=== PATIENT | male | born 1980 | race Caucasian/White ===

== ENCOUNTER 2020-03-29 04:16 | Emergency (ER) | payer BC, SELFPAY ==
[2020-03-29 04:18] VITALS: BP 153/90; PULSE 80; RESP 20; TEMP 36.4; O2SAT 100; BMI 38.6
[2020-03-29] MEDS: Ondansetron 4 MG/2 ML Vial IV (04:38)
[2020-03-29] MEDS: Ketorolac 30 MG/ML Syringe IV (04:39)
[2020-03-29] MEDS: 0.9% Normal Saline 1,000 ML 999 ML IV (04:43)
--- NOTE | 2020-03-29 04:45 | CT_ITS ---
STUDY: CT ABDOMEN AND PELVIS WITHOUT CONTRAST REASON FOR EXAM: Male, 39 years old patient with right-sided flank pain radiating to right lower abdomen. Past medical history of kidney stones RADIATION DOSAGE (If Supplied By Facility): CTDIvol = ( 22.92 ) mGy, DLP = ( 1420.05 ) mGycm TECHNIQUE: Transaxial images were obtained from the dome of the diaphragm to the symphysis pubis without oral contrast, and without intravenous contrast. Sagittal and coronal images were reconstructed. Individualized dose optimization techniques were used for this CT. COMPARISON: CT of abdomen and pelvis dated 04/12/2017. FINDINGS: The visualized lung bases are unremarkable. The visualized portions of the heart are within normal limits. There is decreased attenuation of the liver consistent with steatosis. Normal gallbladder and extrahepatic biliary system. Normal spleen. Normal pancreas. Normal bilateral adrenal glands. There is moderate right-sided hydronephrosis and hydroureter secondary to a proximal ureteral calculus measuring 5 mm in greatest dimension. There are nonobstructing right-sided renal calculi with the largest measuring 5.3 mm in size. Normal left kidney. Normal visualized stomach. There is no evidence for dilated bowel, ascites or pneumoperitoneum. The small bowel has a grossly normal appearance. Normal colon. The appendix is visualized and appears normal. Normal abdominal aorta. Normal inferior vena cava. Normal retroperitoneum. Normal urinary bladder. Normal visualized prostate gland. Normal abdominal wall. Normal osseous structures. CT/Abdomen/Pelvis without Cont IMPRESSION: Moderate right-sided hydronephrosis and hydroureter secondary to a proximal ureteral calculus. Electronically Signed: Kendra Bunn MD at 5:18 EST , Service support ,
--- NOTE | 2020-03-29 04:46 | ED.DCSUM_ITS ---
History of Present Illness Chief Complaint: Flank Pain Narrative: Patient is a 39-year-old male who presents with abdominal pain. He woke about an hour ago from sleep with sudden onset severe cramping right lower quadrant abdominal pain. He does have some pain on the right flank as well. No back pain. He has a history of prior kidney stones but this does not feel the same. He felt like he needed to have bowel movement but did not. No urinary symptoms such as dysuria frequency or urgency. No diarrhea. He does report nausea with vomiting on arrival here to the emergency department. No fevers. No history of any abdominal surgeries. Before the sudden onset of his pain he has otherwise recently been well. Past Medical History - Allergies and Home Meds Allergies/Adverse Reactions: Allergies No Known Allergies Allergy (Verified 03/29/20 04:35) Primary Care Physician: Don Garza MD [Primary Care Provider] - Past Medical History: - - Prior urolithiasis Surgical History: - - No abdominal surgeries Smoking Status: Never smoker Review of Systems All systems negative except as indicated General: Denies: Fever Eyes: Denies: Visual changes - bilaterally Cardiovascular: Denies: Chest pain Respiratory: Denies: Dyspnea Gastrointestinal: Reports: Abdominal pain, Nausea, Vomiting. Denies: Diarrhea, Constipation Genitourinary: Denies: Dysuria, Hematuria, Frequency Musculoskeletal: Denies: Myalgias, Arthralgias Skin: Denies: Rash Neurological: Denies: Headache Physical Exam Vital Signs/Narrative: Vital Signs Temp Pulse Resp BP Pulse Ox 03/29/20 04:18 97.6 F L 80 20 H 153/90 H 100 Inital Vital Signs reviewed: Yes General: Acute Distress Head: Normocephalic Eyes: EOMI ENT: Moist mucous membranes Neck: Supple Cardiovascular: Regular rate, Regular rhythm Respiratory: No distress, CTA bilaterally Abdomen: Soft, Tender - Right lower quadrant abdominal tenderness. Negative for: Guarding, Rebound tenderness Skin: Normal color Neurological: Alert Psychological: Normal affect Diagnostic/Tx/Re-eval Impressions Abdomen/Pelvis CT 03/29/20 04:45 IMPRESSION: Moderate right-sided hydronephrosis and hydroureter secondary to a proximal ureteral calculus. Electronically Signed: Kendra Bunn MD at 5:18 EST , Service support , 03/29/20 04:45 Abdomen/Pelvis without Cont [CT] Stat Laboratory Results 03/29/20 03/29/20 03/29/20 04:30 04:30 05:10 WBC 8.3 RBC 5.71 Hgb 17.5 H Hct 49.2 MCV 86.2 MCH 30.6 MCHC 35.6 RDW Std Deviation 39.1 RDW Coeff of Radha 12.6 Plt Count 289 MPV 9.0 Immature Gran % (Auto) 0.100 Neut % (Auto) 27.6 L Lymph % (Auto) 58.7 H [place] % (Auto) 9.3 Eos % (Auto) 3.6 Baso % (Auto) 0.7 Absolute Neuts (auto) 2.3 Absolute Lymphs (auto) 4.87 H Nucleated RBC % 0 Sodium 138 Potassium 3.9 Chloride 104 Carbon Dioxide 24.0 Anion Gap 10 BUN 16 Creatinine 1.11 Estim Creat Clear Calc 100.97 Est GFR (MDRD) Af Amer 94 Est GFR (MDRD) Non-Af 78 BUN/Creatinine Ratio 14.4 Glucose 132 H Calcium 8.9 Total Bilirubin 1.20 H AST 48 H ALT 107 H Alkaline Phosphatase 59 Total Protein 7.4 Albumin 4.4 Globulin 3.0 Albumin/Globulin Ratio 1.5 Lipase 67 L Urine Color Gina Urine Clarity Cloudy Urine pH 5.0 Ur Specific [place] 1.025 Urine Protein 30 H Urine Glucose (UA) Normal Urine Ketones 50 H Urine Occult Blood 250 H Urine Nitrite Negative Urine Bilirubin Negative Urine Urobilinogen 1 H Ur Leukocyte Esterase 25 H Urine RBC > 100 SEEN Urine WBC 0-5 SEEN Ur Squamous Epith Cells 0 SEEN Ur Transition Epith Cell 0-5 SEEN Urine Bacteria 3+ Urine Mucus 1+ - Medical Decision Making Patient was given IV fluids, Toradol, Zofran. He had about a 50% improvement in his pain from 8 out of 10 down to 4 out of 10. He is resting more comfortably. CBC and BMP unremarkable as above. CT of the abdomen and pelvis does show a proximal right ureteral calculus with moderate hydroureter and hydronephrosis. Given the patient's symptoms are improved I feel expectant management is appropriate. Patient was given oxycodone and will be discharged with a prescription for oxycodone and Flomax. He was referred to urology for follow- up. He understands to return for new or worsening symptoms. ED Disposition - Plan for ED Patient: Disposition: Home or Assisted Living Diagnosis: Ureterolithiasis Instructions: ED Kidney Stone w/ Colic Prescriptions: Tamsulosin HCl [Flomax] 0.4 mg PO DAILY #7 cap Prescription Printed Oxycodone HCl/Acetaminophen [Percocet 5/325] 1 tab PO Q6H PRN PRN 3 Days #12 tab PRN Reason: Pain Prescription Printed Referrals: Don Garza MD [Primary Care Provider] - Sebas Cabrera MD [STAFF PHYSICIAN] -
[2020-03-29 04:57] LABS: Absolute Lymphocyte Count 4.87 X10^3/uL (0.83-4.51); Absolute Neutrophil Count 2.3 X10^3/uL (2.0-7.7); Basophil# 0.06 X10^3/uL; Basophil% 0.7 % (0-1); Eosinophils% 3.6 % (0-5); Hematocrit 49.2 % (40-54); Hemoglobin 17.5 g/dL (13.0-16.5); Lymphocyte # 4.87 X10^3/ul (4.0); Lymphocyte % 58.7 % (19-41); Mean Corp Hgb Conc 35.6 g/dL (32-36); Mean Corpuscular Hgb 30.6 pg (27.0-32.0); Mean Corpuscular Volume 86.2 fL (80-94); Monocyte# 0.77 X10^3/uL; Monocyte% 9.3 % (0-10); NRBC Flagged by Analyzer 0 % (0-5); Neutrophil # 2.28 X10^3/uL (2.7-7.7); Neutrophil % 27.6 % (47-70); Platelet Count 289 K/mm3 (150-450); RBC Distribution Width CV 12.6 % (11.6-14.6); RBC Distribution Width SD 39.1 fl (35.1-43.9); Red Blood Count 5.71 M/mm3 (4.6-6.2); White Blood Count 8.3 K/mm3 (4.4-11.0)
[2020-03-29 05:08] LABS: ALB/GLOB Ratio 1.5 RATIO (0.9-2.4); AST(SGOT) 48 U/L (15-37); Alanine Aminotransfer ALT/SGPT 107 U/L (16-61); Albumin, Serum 4.4 g/dL (3.2-5.0); Alkaline Phosphatase 59 U/L (45-117); Anion Gap 10 (5-15); BUN 16 mg/dL (7-18); BUN/Creat Ratio 14.4 RATIO (10-20); Calcium,Total 8.9 mg/dL (8.5-10.1); Chloride 104 mmol/L (98-107); Creatinine, Serum 1.11 mg/dL (0.70-1.30); EST Glomerular Filtration Rate 78 mL/min (>60); Est Glom Filt Rate - Afr Amer 94 mL/min (>60); Estimated Creatinine Clearance 100.97 ml/min; Glucose 132 mg/dL (74-106); Lipase 67 U/L (73-393); Potassium 3.9 mmol/L (3.5-5.1); Protein, Total 7.4 g/dL (6.4-8.2); Sodium Level 138 mmol/L (136-145)
[2020-03-29 05:16] LABS: Squamous Epithelial Cells - UA 0 SEEN /hpf (0-5)
[2020-03-29 05:17] LABS: Color, Urine Amber (Yellow); Glucose, Dipstick Normal (Normal); Ketone-Dipstick 50 mg/dl (Negative); Leukocyte Esterase-Dipstick 25 /ul (Negative); Nitrite-Dipstick Negative (Negative); Occult Blood-Urine 250 /ul (Negative); Protein-Dipstick 30 mg/dl (Negative); Specific Gravity, Urine 1.025 (1.002-1.030); Urine Bilirubin Dipstick Negative (Negative); Urine Clarity Cloudy (Clear); Urine Urobilinogen 1 mg/dl (Normal)
[2020-03-29 05:23] LABS: Red Blood Cells-Urine > 100 SEEN /hpf (0-5)
[2020-03-29 05:24] LABS: Bacteria 3+ /hpf (None Seen); White Blood Cells 0-5 SEEN /hpf (0-5)
[2020-03-29 05:25] LABS: Mucous, Urine 1+ /hpf (<or=2+)
[2020-03-29 05:26] LABS: Transitional Epithelial - Ur 0-5 SEEN /hpf (0-5)
[2020-03-29] MEDS: oxyCODONE 5 MG Tablet PO (05:30)
[2020-03-29 06:00] VITALS: BP 148/72; PULSE 78; RESP 16; O2SAT 97
== END 2020-03-29 06:01 | disposition home or self-care (01) ==
PROVIDERS: Emergency Provider Emergency Medicine; PCP Family Medicine
DX: N13.2 Hydronephrosis with renal and ureteral calculous obstruction (principal); Z87.442 Personal history of urinary calculi
CPT/HCPCS: 74176; 80053; 81001; 83690; 85025; 96361; 96374; 96375; 99283; J7030; J2405

== ENCOUNTER → 2020-04-19 08:54 | Outpatient (CLI) | payer BC, SELFPAY ==
[2020-03-29 04:18] VITALS: BMI 38.6
--- NOTE | 2020-04-19 08:58 | RAD_ITS ---
STUDY: X-RAY - ABDOMEN/PELVIS REASON FOR EXAM: Male, 39 years old. Right sided ureteral stone. Pain. TECHNIQUE: Two AP supine views of the abdomen and pelvis. COMPARISON: CT of the abdomen and pelvis, 03/29/2020. FINDINGS: Normal visualized lung bases. There is an unremarkable bowel gas pattern. There is no demonstrated free abdominal air. The visualized liver, spleen and kidneys are grossly normal in size and morphology. There are small densities overlying the right kidney thought to be the renal calculi seen CT. The right proximal ureteral calculus seen on CT is not appreciated. There are no other suspicious calcification Normal soft tissue structures. Normal visualized osseous structures. RAD/Abdomen Single View IMPRESSION: 1. Nonvisualization of the right ureteral calculus. 2. Stable right renal calculi. Electronically Signed: Raymundo Crespo DO at 17:29 EST Tel [phone], Service support ,
== END ==
PROVIDERS: PCP Nurse Practitioner Family; Referring Provider Urology; Visit Provider Urology
DX: N20.1 Calculus of ureter (principal)
CPT/HCPCS: 74018

== ENCOUNTER 2020-04-20 11:27 | Day surgery (SDC) | payer BC, SELFPAY ==
--- NOTE | 2020-04-20 11:35 | RAD_ITS ---
STUDY: X-RAY - ABDOMEN/PELVIS REASON FOR EXAM: Male, 40 years old. PRE OP RIGHT SIDE KIDNEY STONE TECHNIQUE: Single AP view of the abdomen / pelvis. COMPARISON: Comparison is made with prior study of 04/19/2020. FINDINGS: There is an unremarkable bowel gas pattern. 2.4 mm calculus in the midpole of the right kidney. Normal soft tissue structures. Normal visualized osseous structures. RAD/Abdomen Single View IMPRESSION: 2.4 mm calculus in the midpole of the right kidney. Electronically Signed: Lorne Davila, at 12:02 EST , Service support ,
[2020-04-20 11:59] VITALS: BP 143/85; PULSE 60; RESP 16; TEMP 36.6; O2SAT 97; BMI 38.2
[2020-04-20] MEDS: Lactated Ringers 1,000 ML 100 ML IV (12:16)
== END 2020-04-20 13:10 | disposition home or self-care (01) ==
LOC: SDC 11:28 → AC 11:29
PROVIDERS: PCP Nurse Practitioner Family; Visit Provider Urology
DX: N20.0 Calculus of kidney (principal); Z20.822 Contact with and (suspected) exposure to COVID-19
CPT/HCPCS: 74018; 87426; J7120

== ENCOUNTER → 2023-03-12 | Outpatient (CLI) | payer BC, SELFPAY ==
[2023-03-12 12:11] LABS: Absolute Lymphocyte Count 2.27 X10^3/uL (0.83-4.51); Absolute Neutrophil Count 2.7 X10^3/uL (2.0-7.7); Basophil# 0.05 X10^3/uL; Basophil% 0.8 % (0-1); Eosinophil# 0.27 X10^3/uL; Eosinophils% 4.6 % (0-5); Hematocrit 51.8 % (40-54); Hemoglobin 17.6 g/dL (13.0-16.5); Lymphocyte # 2.27 X10^3/ul (0.83-4.51); Lymphocyte % 38.5 % (19-41); Mean Corpuscular Hgb 30.3 pg (27.0-32.0); Mean Corpuscular Volume 89.3 fL (80-94); Mean Platelet Vol. 9.7 fl (6.2-12.0); Monocyte# 0.61 X10^3/uL; Monocyte% 10.4 % (0-10); NRBC Flagged by Analyzer 0 % (0-5); Neutrophil # 2.68 X10^3/uL (2.7-7.7); Neutrophil % 45.5 % (47-70); Platelet Count 271 K/mm3 (150-450); RBC Distribution Width CV 13.2 % (11.6-14.6); White Blood Count 5.9 K/mm3 (4.4-11.0)
[2023-03-12 12:24] LABS: ALB/GLOB Ratio 1.2 RATIO (0.9-2.4); AST(SGOT) 36 U/L (15-37); Alanine Aminotransfer ALT/SGPT 83 U/L (16-61); Albumin, Serum 4.1 g/dL (3.2-5.0); Alkaline Phosphatase 60 U/L (45-117); Anion Gap 7 (5-15); BUN 18 mg/dL (7-18); BUN/Creat Ratio 20.3 RATIO (10-20); Calcium,Total 9.3 mg/dL (8.5-10.1); Chloride 105 mmol/L (98-107); Cholesterol 157 mg/dL (200); Creatinine, Serum 0.89 mg/dL (0.70-1.30); EST Glomerular Filtration Rate 100 mL/min (>60); Est Glom Filt Rate - Afr Amer 121 mL/min (>60); Globulin 3.5 g/dL (2.2-4.2); Glucose 131 mg/dL (74-106); High Density Lipoprotein 42 mg/dL; Potassium 4.7 mmol/L (3.5-5.1); Protein, Total 7.6 g/dL (6.4-8.2); Sodium Level 142 mmol/L (136-145); Triglycerides 76 mg/dL; Very Low Density Lipoprotein 15 mg/dL (5-40)
[2023-03-13 10:36] LABS: Hemoglobin A1c 5.1 % (3.8-5.6)
== END | disposition home or self-care (01) ==
PROVIDERS: PCP Nurse Practitioner Family; Visit Provider Nurse Practitioner Family
DX: Z00.01 Encounter for general adult medical examination with abnormal findings (principal); R73.01 Impaired fasting glucose
CPT/HCPCS: 36415; 80053; 80061; 83036; 85025

== ENCOUNTER → 2023-10-02 | Outpatient (CLI) | payer BC, SELFPAY ==
[2023-10-02 10:16] LABS: Absolute Lymphocyte Count 2.81 X10^3/uL (0.83-4.51); Absolute Neutrophil Count 2.8 X10^3/uL (2.0-7.7); Basophil# 0.06 X10^3/uL; Basophil% 0.9 % (0-1); Eosinophil# 0.19 X10^3/uL; Eosinophils% 2.9 % (0-5); Hematocrit 52.3 % (40-54); Hemoglobin 18.2 g/dL (13.0-16.5); Lymphocyte # 2.81 X10^3/ul (0.83-4.51); Lymphocyte % 43.6 % (19-41); Mean Corp Hgb Conc 34.8 g/dL (32-36); Mean Corpuscular Hgb 29.8 pg (27.0-32.0); Mean Corpuscular Volume 85.7 fL (80-94); Monocyte# 0.56 X10^3/uL; Monocyte% 8.7 % (0-10); NRBC Flagged by Analyzer 0 % (0-5); Neutrophil # 2.81 X10^3/uL (2.7-7.7); Neutrophil % 43.6 % (47-70); Platelet Count 235 K/mm3 (150-450); RBC Distribution Width CV 12.9 % (11.6-14.6); RBC Distribution Width SD 39.7 fl (35.1-43.9); White Blood Count 6.5 K/mm3 (4.4-11.0)
[2023-10-02 10:37] LABS: Vitamin B12 783 pg/mL (211-911); Vitamin D,25 Hydroxy 37.2 ng/mL
[2023-10-02 11:00] LABS: Internal QC Validated? YES +Cl - CLEAR BKGD; Monotest Negative (Negative); Record Kit Lot#, Mono 13241033
[2023-10-02 11:15] LABS: ALB/GLOB Ratio 1.3 RATIO (0.9-2.4); AST(SGOT) 39 U/L (15-37); Alanine Aminotransfer ALT/SGPT 69 U/L (16-61); Albumin, Serum 4.2 g/dL (3.2-5.0); Alkaline Phosphatase 60 U/L (45-117); Anion Gap 8 (5-15); BUN 15 mg/dL (7-18); BUN/Creat Ratio 18.3 RATIO (10-20); Calcium,Total 9.2 mg/dL (8.5-10.1); Chloride 103 mmol/L (98-107); Creatinine, Serum 0.82 mg/dL (0.70-1.30); EST Glomerular Filtration Rate 109 mL/min (>60); Est Glom Filt Rate - Afr Amer 131 mL/min (>60); Ferritin 183 ng/mL (26-388); Globulin 3.3 g/dL (2.2-4.2); Glucose 105 mg/dL (74-106); Iron 126 ug/dL (65-175); Protein, Total 7.5 g/dL (6.4-8.2); Sodium Level 135 mmol/L (136-145); T4 Free Direct 0.92 ng/dL (0.76-1.46); Thyroid Stim Hormone (TSH) 1.43 uIU/mL (0.358-3.74)
[2023-10-05 13:36] LABS: Pathologist Review Reviewed
== END | disposition home or self-care (01) ==
LOC: MTLAB 09:36
PROVIDERS: PCP Nurse Practitioner Family; Referring Provider Nurse Practitioner Family; Visit Provider Nurse Practitioner Family
DX: R53.83 Other fatigue (principal)
CPT/HCPCS: 36415; 80053; 82306; 82607; 82728; 83540; 84439; 84443; 85025; 86308

== ENCOUNTER → 2023-11-24 | Outpatient (CLI) | payer BC, SELFPAY | END | disposition home or self-care (01) | LOC: SL 08:04 | PROVIDERS: PCP Nurse Practitioner Family; Referring Provider Nurse Practitioner Family; Visit Provider Nurse Practitioner Family | DX: G47.33 Obstructive sleep apnea (adult) (pediatric) (principal) | CPT/HCPCS: 95806 ==

== ENCOUNTER → 2024-02-04 | Outpatient (CLI) | payer BC, SELFPAY ==
--- OUTSIDE RECORDS SUMMARY | 2024-02-04 19:57 | XMS RPT_ITS | CCD ---
Author Organization [facility] Care Team Providers Care Probate Paralegal Name Role Phone PHYSICIAN, NONE Unavailable Unavailable MJ BENSON Unavailable Unavailable MJ BENSON Unavailable Unavailable MJ BENSON Unavailable Unavailable FICAUSTIN MORAN Unavailable Unavailable AUSTIN NOGUERA Unavailable Unavailable PHYSICIAN, NONE Unavailable Unavailable PRASHANT MONAHAN Unavailable Unavailable LEILA VELÁSQUEZ Unavailable Unavailable Fatoumata Baldwin Unavailable Unavailable Mj Garza Unavailable Unavailable Mj Garza Unavailable Unavailable Mj Garza Unavailable Unavailable Mj Garza Unavailable Unavailable BaldwinFatoumata dooley Unavailable Unavailable BaldwinFatoumata Unavailable Unavailable TomMj humphries Unavailable Unavailable MJ GARZA Primary Care Unavailable HUNTER VAZQUEZ II Attending Unavailabl e Allergies Allergy Classification Reported Allergen(s) Allergy Type Date of Onset Reaction(s) Facility (1 source) No Known Medication Allergies; Translations: [No Known Medication Allergies] Propensity to adverse reactions to drug (disorder) [facility] Repository Results Test Name Value Interpretation Reference Range Facility CALCULI [STONE] ANALYSISon 0 07-04-2020 CALCULI COMPOSITION See Note Normal [facility] Comment on above: Result Comment: Calc gloria composed primarily of: 70% calcium oxalate monohydrate, 20% calcium oxalate dihydrate, and 10% calcium phosphate (hydroxy- and carbonate- apatite). INTERPRETIVE INFORMATION: Calculi (Stone) analysis Calculi are the products of physiological processes that yield crystalline compounds in a matrix of biological compounds and blood. Matrix components are not reported. The clinically significant crystalline components identified in calculi specimens are reported. Gross description may not be consistent with composition determined by FTIR analysis. Performed By: [facility] [address] [place] [id number] Coverstitch Elastic Attacher: Adrienne Marie MD Performed By: #### C ALCU ####[facility] [id number] [place] [address] CALCULI NUMBER 4 [facility] Comment on above: Performed By: #### C ALCU ####[facility] [id number] [place] [address] CALCULI SIZE Various Normal [facility] Comment on above: Performed By: #### C ALCU ####[facility] [id number] [place] [address] DESCRIPTION See Note [facility] Comment on above: Result Comment: Spec imen consists of four, various sized (1 mm to 9 mm), brown/handy, irregular calculi fragments. Performed By: #### C ALCU ####[facility] [address] [place] [address] CORONAVIRUS 2019, SCREEN ASY MPTOMATICon 07-03-2020 CORONAVIRUS 2019,PCR NOT DETECTED Normal Not Detected [facility] Comment on above: Result Comment: . This assay is designed to detect SARS-CoV-2 based on replication of specific regions of the RNA from the SARS-CoV-2 virus. A Not Detected result does not preclude 2019-nCoV infection since the adequacy of sample collection and/or low viral burden may result in presence of viral nucleic acids below the clinical sensitivity of this test method. Fact sheet for providers: https://www.fda.gov/media/710113/download Fact sheet for patients: https://www.fda.gov/media/691104/download This test has received FDA Emergency Use Authorization [EUA] and has been verified by [facility] ([facility]). This test is only authorized for the duration of time that circumstances exist to justify the authorization of the emergency use of in vitro diagnostic tests for the detection of SARS-CoV-2 virus and/or diagnosis of COVID-19 infection under section 564(b)(1) of the Act, 21 U.S.C. 360bbb-3(b)(1), unless the authorization is terminated or revoked sooner. [facility] is certified under CLIA-88 as qualified to perform high complexity testing. Testing is performed in the [facility] laboratories located at [address] [place] [address]. Performed By: #### C OVSC #### [place] [address] [place] [address] Covid 19 Resultson 1 Covid 19 Results NEGATIVE COVID-[address] Coronaviruses are common world-wide and are the cause of many common colds. SARS-COV2 is a new coronavirus that began circulating worldwide in 2019 so we are calling it COVID-19. It has been estimated that four out of five patients with COVID-19 will recover at home without the need for medical attention. Symptoms of COVID-19 include cough, fever, shortness of breath, loss of taste or smell and other flu-like symptoms including chills, sore muscles, sore throat, and headache. Severe illness is more common in older people and people with other health problems such as high blood pressure, obesity, and immune system problems. If the test is positive, you have COVID-19. You will be contacted by the ordering physicians office and instructed to remain on home isolation, in accordance with CDC guidelines. You may also be contacted by the [facility] to see if any of your close contacts may have been exposed to the virus and need to quarantine. If the test is negative, you likely do not have COVID-19 at this time, but you still may have a different illness that can spread to other people (like Influenza, or the Flu) and could still be at risk for getting COVID-19. We recommend that you stay away from other people to limit the spread of illness until your symptoms are improving and you are fever-free for 24 hours without the use of fever lowering medications such as acetaminophen or ibuprofen. No test is 100% accurate so if you are still concerned you may have COVID-19, talk to your doctor about the need to continue to stay away from others. Medicines Acetaminophen (Tylenol and others) is generally safe. Anti-inflammatory medications, such as Ibuprofen (Advil or Motrin) or Naproxen (Aleve) can also be used. Aodl-gud-kmhrihl cough and cold medicines can be used according to the instructions on the package. Some nabo-qdd-haimrbq medicines also contain acetaminophen. Make sure you are not taking more than your recommended dose For those not hospitalized, there is no specific treatment available for this illness. Antibiotics do not treat Coronaviruses. Follow-Up Follow up with your doctor by scheduling a virtual visit or consider follow-up at one of our urgent care fever clinics. If you are having difficulty breathing, or are very weak and having difficulty standing, this is a medical emergency. Call 911 or have someone take you to the nearest emergency room immediately. If possible, wear a facemask. Additional guidance from the CDC for patients who tested POSITIVE for COVID-19 How to isolate: Isolate yourself in a specific room at home and limit your contact with others. Use a separate bathroom from other members of the household, when possible. Leave home only to get essential medical care. Do not go to work, school or public areas. Avoid using public transportation, ride-sharing, or taxis. Restrict contact with pets and other animals. If you must care for your pet or be around animals while you are sick, wash your hands before and after your interaction and wear a facemask. Make sure that shared spaces in the home have good airflow, such as by an air conditioner or an opened window, weather permitting. Personal Hygiene Procedures: Wear a face mask when in the same room as other people or pets. If a face mask interferes with your breathing, others should wear a mask when sharing space with you. Frequent hand-washing: wash your hands with soap and water for at least 20 seconds. If soap and water are not available, use alcohol-based hand application support engineer. Avoid touching your eyes, nose, and mouth with unwashed hands. Household Hygiene Procedures: Avoid sharing personal household items such as dishes, glassware, cups, eating utensils, towels or bedding with other people or pets in your home. After use, these items should be washed with soap and hot water. Disinfect all high-touch surfaces every day with antibacterial cleaning solutions such as Lysol wipes, bleach, cleansers, etc. High-touch surfaces include tabletops, doorknobs, bathroom fixtures, toilets, phones, keyboards, tablets and bedside tables. Immediately clean any surfaces that may have blood, poop or body fluids on them, using antibacterial cleaning solutions such as Lysol wipes, bleach, cleansers, etc. If clothing or bedding come into contact with blood, poop or body fluids, they should be washed immediately. Follow the directions on the laundry detergent and clothing labels but hot water is recommended when possible. Stopping home isolation precautions: If possible, consult your doctor before stopping home isolation precautions. According to the CDC, you can discontinue home isolation precautions when you have met both of these criteria: Your fever and respiratory symptoms have been gone for 24 hours without the use of any medicines like ibuprofen (Motrin) and acetaminophen (Tylenol). It has been at least 10 days since your symptoms first appeared. If you are immunosuppressed OR you were admitted to the hospital for this, you should wait until it has been 14 days since your symptoms first appeared. Guidelines for Those Living With and/or Caring For Persons with COVID-19: Read and follow all the recommendations outlined in this handout. Do not permit visitors in the home unless there is an essential need. Wear a facemask when in the same room as the patient. Wear a facemask and gloves (disposable if available) when you touch or have contact with the patient's blood, poop, or body fluids including saliva, phlegm, nasal mucus, vomit or urine. Clean or throw away facemasks and gloves after use and wash your hands with soap and water. You will need to quarantine (stay away from others) for 14 days after your last contact with your family member with COVID-19. The person with COVID-19 is considered contagious 48 hours prior to symptoms beginning (or starting with the day of the positive test if they have no symptoms) for a total of 10 days. Additional resources: [facility] COVID Hotline at 1-971-1AEHBYZ ( ). COVID-19 Careline at (available 24 hours per day, seven days a week if you or a loved one is experiencing anxiety related to the coronavirus pandemic). Clinical research opportunities: is conducting research studies to develop better testing and treatments for COVID. Do you want any information on how to participate Call [phone]. Websites: [facility] or www.CDC.gov Follow My Health / My [facility] (for other test results): Revised 02/28/2020 Electronic Signatures: Belle Odonnell (ADMIN) (Signature pending) Authored Last Updated: 03-Jul-2020 04:39 by [employer], [employer] (ADMIN) Normal [facility] History and Physical - Surgi junior Update < 30 dayson 07-03-2020 History and Physical - Surgical Update < 30 days History & Physical Reviewed: I have reviewed the History and Physical dated: 02-Jul-2020 History and Physical reviewed and relevant findings noted. Patient examined to review pertinent physical findings.: No significant changes Home Medications Reviewed: no changes noted Allergies Reviewed: no changes noted ERAS (Enhanced Recovery After Surgery): ERAS Patient: no Consent: COVID-19 Consent: COVID-19 Risk ConsentSurgeon has reviewed [place] risks related to the risk of francesca COVID-19 and if they contract COVID-19 what the risks are. Signatures/Attestation: Note Completion: Attending Provider Inpatient Certification StatementObservation patient/other outpatient visits Electronic Signatures: Fatoumata Baldwin) (Signed 03-Jul-2020 08:03) Authored: History & Physical Reviewed, ERAS, Consent, Note Completion Last Updated: 03-Jul-2020 08:03 by Fatoumata Baldwin) [facility] Order Reconciliationon 07-03 Order Reconciliation Page 1 Discharge Reconciliation Document Reconciliation Type: Discharge requested on behalf of Fatoumata Baldwin (Physician) done by Fatoumata Baldwin) Discharge - Reconciliation: 03-Jul-2020 11:49 by: Fatoumata Baldwin) Home Medications EnteredHOME MEDICATIONS AT DISCHARGE DateReconciliation Comment/ Additional Information Bactrim DS 800 mg-160 mg oral tablet 160 milligram(s) orally 2 times a day 29-Jun-2020 09:16 Bactrim DS 800 mg-160 mg oral tablet 160 milligram(s) orally 2 times a day 29-Jun-2020 09:16 Bactrim DS 800 mg-160 mg oral tablet is continued as Bactrim DS 800 mg-160 mg oral tablet Austin 5 mg-325 mg oral tablet 1 tab(s) orally every 6 hours, As Needed 29-Jun-2020 09:16 Austin 5 mg-325 mg oral tablet 1 tab(s) orally every 6 hours, As Needed 29-Jun-2020 09:16 Austin 5 mg-325 mg oral tablet is continued as Austin 5 mg-325 mg oral tablet oxycodone-acetaminophen 5 mg-300 mg oral tablet 1 tab(s) orally every 6 hours, As Needed 29-Jun-2020 08:53 oxycodone-acetaminophen 5 mg-300 mg oral tablet 1 tab(s) orally every 6 hours, As Needed 29-Jun-2020 08:53 oxycodone-acetaminophen 5 mg-300 mg oral tablet is continued as oxycodone-acetaminophen 5 mg-300 mg oral tablet Pyridium 200 mg oral tablet 1 tab(s) orally every 8 hours, As Needed 29-Jun-2020 09:16 Pyridium 200 mg oral tablet 1 tab(s) orally every 8 hours, As Needed 29-Jun-2020 09:16 Pyridium 200 mg oral tablet is continued as Pyridium 200 mg oral tablet Current OrdersDateHOME MEDICATIONS AT DISCHARGE DateReconciliation Comment/ Additional Information Acetaminophen Tablet (TYLENOL)DOSE = 975 mg Oral Once 03-Jul-2020 07:01 Acetaminophen is not required Dexamethasone Injectable (DECADRON)DOSE = 8 mg IntraVenous Push Once 03-Jul-2020 07:01 Dexamethasone Injectable is not required Lactated Ringers Infusion IV Bag Volume = 1,000 mL Run at: 100 mL/hr IntraVenous Clinician Notes: Desi-operative order ONLY 03-Jul-2020 07:01 Lactated Ringers Infusion is not required Lactated Ringers Infusion IV Bag Volume = 1,000 mL Run at: 30 mL/hr IntraVenous 03-Jul-2020 07:01 Lactated Ringers Infusion is not required Midazolam Injectable (VERSED)DOSE = 1 mg IntraVenous Push Once 03-Jul-2020 07:01 Midazolam Injectable is not required Morphine Injectable DOSE = 4 mg IntraVenous Push Every 5 Minutes, PRN Pain - Severe (7-10) (PACU)Clinician Notes: Desi-operative order ONLYMax total of 20 mg regardless of dose. 03-Jul-2020 07:01 Morphine Injectable is not required Ondansetron Injectable (ZOFRAN)DOSE = 4 mg IntraVenous Push Once 03-Jul-2020 07:01 Ondansetron Injectable is not required Home Medications Added During Discharge Reconciliation Call Physician For: inability to urinate every 8-12 hours and your bladder becomes too full or painful. Call Physician For: signs and sypmtoms of infection Increased redness or swelling at incision site, increased pain/tenderness at surgical site, increased temperature greater than 100 degress, increasing and/or progressive drainage from surgical site, and/or unusual odor from surgical site. Cipro 250 mg oral tablet 1 tab(s) orally 2 times a day Diet Regular Discharge Discharge Diagnosis< N20.1 Left ureteral stone Discharge ProviderNicolasa John Discharge Disposition : .Home Condition at Discharge: Satisfactory Discharge Communication Instructions for Nursing Only: Remove IV prior to discharge from hospital. Do not remove any midline, if present, without an order from the provider. Discharge Instructions - PHR After your discharge from the hospital, two Summary of Care Documents will be available online in your Personal Health Record (PHR). 1.Consolidated-Clinical Document Architecture (C-CDA) Patient Discharge Summary This document is a summary of your hospital stay to be kept for your reference.2.C-CDA Visit Summary This document is a summary of your hospital stay to be shared with your follow-up providers (doctor, yeast pumper, physical therapist, etc.). Follow Up with Nicolasa in 3 Months Austin 5 mg-325 mg oral tablet 1 tab(s) orally every 6 hours, As Needed Post Procedure Discharge Criteria Criteria: Easily arousable / responding appropriately; Significant complications are absent; SpO2 = or > 92%, or if SpO2 < 92%, maintains within 2% of baseline; Vital signs +/- 20% of preprocedure status; Ambulates without dizziness / age appropriate activity and ambulatory status returns to pre-procedure baseline. Pyridium 200 mg oral tablet 1 tab(s) orally every 8 hours, As Needed All Active Home Medications at time of Discharge Reconciliation: 03-Jul-2020 11:49 Bactrim DS 800 mg-160 mg oral tablet 160 milligram(s) orally 2 times a day Call Physician For: inability to urinate every 8-12 hours and your bladder becomes too full or painful. Call Physician For: signs and sypmtoms of infection Increased redness or swelling at incision site, increased pain/tenderness at surgical site, increased temperature greater than 100 degress, increasing and/or progressive drainage from surgical site, and/or unusual odor from surgical site. Cipro 250 mg oral tablet 1 tab(s) orally 2 times a day Diet Regular Discharge Discharge Diagnosis< N20.1 Left ureteral stone Discharge Provider, Fatoumata Baldwin Discharge Disposition : .Home Condition at Discharge: Satisfactory Discharge Communication Instructions for Nursing Only: Remove IV prior to discharge from hospital. Do not remove any midline, if present, without an order from the provider. Discharge Instructions - PHR After your discharge from the hospital, two Summary of Care Documents will be available online in your Personal Health Record (PHR). 1.Consolidated-Clinical Document Architecture (C-CDA) Patient Discharge Summary This document is a summary of your hospital stay to be kept for your reference.2.C-CDA Visit Summary This document is a summary of your hospital stay to be shared with your follow-up providers (doctor, yeast pumper, physical therapist, etc.). Follow Up with Baldwin in 3 Months Austin 5 mg-325 mg oral tablet 1 tab(s) orally every 6 hours, As Needed oxycodone-acetaminophen 5 mg-300 mg oral tablet 1 tab(s) orally every 6 hours, As Needed Post Procedure Discharge Criteria Criteria: Easily arousable / responding appropriately; Significant complications are absent; SpO2 = or > 92%, or if SpO2 < 92%, maintains within 2% of baseline; Vital signs +/- 20% of preprocedure status; Ambulates without dizziness / age appropriate activity and ambulatory status returns to pre-procedure baseline. Pyridium 200 mg oral tablet 1 tab(s) orally every 8 hours, As Needed Normal [facility] Patient Profile - Preop v2on 07-03-2020 Patient Profile - Preop v2 Profile: Initial Info: How to be AddressedZach(1) Spoken Language PreferredEnglish (1) Are you currently using the Personal Electronic Health Record or [facility] (1) Are you interested in learning more about [facility] for the management of your healthdeclined Stated Reason for AdmissionR ESWL Primary Contact Name and NumberKendra [phone] Patient Belongingsnone Medications Brought to Hospitalyes General Health: Weight in kg129.5 kilogram(s) Weight in tzw113.4 pound(s) Weight Methodactual (measured) Scale Typestanding Height Methodstated Patient or Family Member Reaction to Anesthesiano previous reaction Health Mgmt: Symptoms/Conditions Managed at [place] Barriers to Managing Healthnone Relationship/Environ: Resource/Environmental Concernsnone Substance: Current or Former Substance Use never: Cigarette/Tobacco(1), e-Cigarette/Vaping(1) YES: Alcohol(1) Risk Screens: COVID-19 Screening Completedno exposure or symptoms Advance Directive/DNRno Advance Directive Information Givenpatient/family declined Advance Directive Mental Healthnot applicable During the past month, have you often been bothered by feeling down, depressed or hopelessno During the past month, have you often had little interest or pleasure in doing thingsno Have you had any thoughts of harming yourselfno Have you had any thoughts of harming anyone elseno Are you or have you been threatened or abused physically,emotionally or sexually abused by anyoneno Do you feel UNSAFE going back to the place you are livingno Patient is Able to be Assessed for Learningyes Factors Influencing Readiness to Learnmotivation to learn Factors that Impact Ability to Learnnone Devices/Methods Used to Communicatenone Learning Preferencesverbal instruction Cultural Considerationsnone Developmental Considerationsnone Mandaeism Considerationsnone Other learner availableyes... Learnerspouse Factors Influencing Readiness to Learnmotivation to learn Factors that Impact Ability to Learnnone Devices/Methods Used to Communicatenone Learning Preferencesverbal instruction Cultural Considerationsnone Developmental Considerationsnone Mandaeism Considerationsnone Falls RiskPatient location auto qualifies him/her for HIGH RISK. Are there any cultural, spiritual, mosque practices/values/needs that are important for us to knowno Do you want a visit/item from Pastoral [facility] Would you like your Manager Banking/Safety Compliance Specialist notifiedno Pain Scalenumerical 0-10 Pain Scale Educationteaching provided Current Pain Level5 = Moderate Acceptable Pain Level5 = Moderate Chronic Painno Information Review: Allergies, Home Meds and Significant Events have been Reviewed and Verified with Patient/Familyyes Allergy, Intolerance, Adverse Event: Allergies: No Known Allergies: Active Electronic Signatures: Adrienne Sandhu (NOEMI) (Signed 03-Jul-2020 12:09) Authored: Initial Info, General Health, Health Mgmt, Relationship/Environ, Substance, Risk Screens, Additional Information Last Updated: 03-Jul-2020 12:09 by Adrienne Sandhu (NOEMI) References: 1. Data Referenced From Patient Profile - Preop v2 29-Jun-2020 08:44 Normal [facility] Preop Checkliston 07-03-2020 Preop Checklist Preop Checklist: Preop Checklist: Arrival [id number] Arrival Time11:43 Procedure psychiatric nursing assistant ESWL, cysto with stent removal Temperature C36.1 degrees C Temperature F97 degrees F Heart Rate57 beats per minute Respiratory Rate20 breath per minute Blood Pressure Fgdptkvx892 mm/Hg Blood Pressure Ndrjxlqha23 mm/Hg NPO [id number] 19:00 ID Band Onyes Allergy Bandno known allergies Consent Signedyes H&P Completeyes Anesthesia Assessment Completedyes EKG Performednot ordered Chest X-Ray Performednot ordered HCG Urine TestN/A Chlorhexadine Bath Givennot applicable Nasal Antiseptic Appliednot applicable Hair Washednot applicable Soap and water bath with hair shampoo the night before surgerynot applicable Hat placed on infant prior to transportnot applicable SCD's Appliednot applicable MEET Hose Appliednot ordered Denturesnot applicable Prostheticsnot applicable Hearing Aidsnot applicable Valuables Securednot applicable Glasses / Contactsnot applicable Bowel Prepno Cardiovascular Assessment: Apicalregular Radial Pulsespalpable Pedal Pulsespalpable Respiratory Assessment: Respirationsregular Air Exchangeequal Breath Soundsclear Neurological Assessment: Level of Consciousnessalert Mobilitymoves all extremities Able to Express Selfyes Age Appropriateyes Emotional Statuscalm Skin Assessment: Skin Site(s) with Current Compromisenone Preop Education: Surgical Site Infection Preventionyes Pain Scales and Managementyes Language / Communication: Language / CommunicationEnglish Electronic Signatures: Adrienne Sandhu (NOEMI) (Signed 03-Jul-2020 12:12) Authored: Preop Checklist Last Updated: 03-Jul-2020 12:12 by Adrienne Sandhu (NOEMI) [facility] ABDOMEN AP VIEWon 07-02-2020 ABDOMEN AP VIEW Patient Name: REBECCA MENDEZ STUDY: ABDOMEN AP VIEW; 07/02/2020 2:39 pm INDICATION: FLANK PAIN. ACCESSION NUMBER(S): [id number] ORDERING CLINICIAN: FATOUMATA BALDWIN FINDINGS: Abdomen, three views Interval placement of a right-sided pigtail stent. Redemonstration of calcifications over the right renal shadow compatible with renal calculi. Previously seen wrist renal calculi not well visualized. IMPRESSION: Right ureteral stent. Right renal calculi present. Electronically signed by: AUNDREA BAZZI MD [facility] CORONAVIRUS 2019, SCREEN ASY MPTOMATICon 07-02-2020 Lab Specimen Source Nasal, Nasopharyngeal Normal [facility] Comment on above: Performed By: #### C OVSC #### [facility] [id number] [place] [address] History and Physical - Surgi junior Update < 30 dayson 06-29-2020 History and Physical - Surgical Update < 30 days History & Physical Reviewed: I have reviewed the History and Physical dated: 27-Jun-2020 History and Physical reviewed and relevant findings noted. Patient examined to review pertinent physical findings.: No significant changes Home Medications Reviewed: no changes noted Allergies Reviewed: no changes noted ERAS (Enhanced Recovery After Surgery): ERAS Patient: no Consent: COVID-19 Consent: COVID-19 Risk ConsentSurgeon has reviewed [place] risks related to the risk of francesca COVID-19 and if they contract COVID-19 what the risks are. Signatures/Attestation: Note Completion: Attending Provider Inpatient Certification StatementObservation patient/other outpatient visits Electronic Signatures: Fatoumata Baldwin) (Signed 29-Jun-2020 08:42) Authored: History & Physical Reviewed, ERAS, Consent, Note Completion Last Updated: 29-Jun-2020 08:42 by Fatoumata Baldwin) [facility] Order Reconciliationon 06-29 Order Reconciliation Page 1 Discharge Reconciliation Document Reconciliation Type: Discharge requested on behalf of Fatoumata Baldwin (Physician) done by Fatoumata Baldwin) Discharge - Reconciliation: 29-Jun-2020 09:17 by: Fatoumata Baldwin) Home Medications EnteredHOME MEDICATIONS AT DISCHARGE DateReconciliation Comment/ Additional Information oxycodone-acetaminophen 5 mg-300 mg oral tablet 1 tab(s) orally every 6 hours, As Needed 29-Jun-2020 08:53 oxycodone-acetaminophen 5 mg-300 mg oral tablet 1 tab(s) orally every 6 hours, As Needed 29-Jun-2020 08:53 oxycodone-acetaminophen 5 mg-300 mg oral tablet is continued as oxycodone-acetaminophen 5 mg-300 mg oral tablet Current OrdersDateHOME MEDICATIONS AT DISCHARGE DateReconciliation Comment/ Additional Information Lactated Ringers Infusion IV Bag Volume = 1,000 mL Run at: 100 mL/hr IntraVenous Clinician Notes: Desi-operative order ONLY 29-Jun-2020 07:16 Lactated Ringers Infusion is not required Lactated Ringers Infusion IV Bag Volume = 1,000 mL Run at: 30 mL/hr IntraVenous 29-Jun-2020 07:15 Lactated Ringers Infusion is not required Morphine Injectable DOSE = 4 mg IntraVenous Push Every 5 Minutes, PRN Pain - Severe (7-10) (PACU)Clinician Notes: Desi-operative order ONLYMax total of 20 mg regardless of dose. 29-Jun-2020 07:16 Morphine Injectable is not required Home Medications Added During Discharge Reconciliation Bactrim DS 800 mg-160 mg oral tablet 160 milligram(s) orally 2 times a day Call Physician For: inability to urinate every 8-12 hours and your bladder becomes too full or painful. Call Physician For: signs and sypmtoms of infection Increased redness or swelling at incision site, increased pain/tenderness at surgical site, increased temperature greater than 100 degress, increasing and/or progressive drainage from surgical site, and/or unusual odor from surgical site. Diet Regular Discharge Discharge Diagnosis< N20.1 Right ureteral stone Discharge Provider, Fatoumata Baldwin Discharge Disposition : .Home Condition at Discharge: Satisfactory Discharge Communication Instructions for Nursing Only: Remove IV prior to discharge from hospital. Do not remove any midline, if present, without an order from the provider. Discharge Instructions - PHR After your discharge from the hospital, two Summary of Care Documents will be available online in your Personal Health Record (PHR). 1.Consolidated-Clinical Document Architecture (C-CDA) Patient Discharge Summary This document is a summary of your hospital stay to be kept for your reference.2.C-CDA Visit Summary This document is a summary of your hospital stay to be shared with your follow-up providers (doctor, yeast pumper, physical therapist, etc.). Follow Up with nicolasa in 1-2 Weeks [place] 5 mg-325 mg oral tablet 1 tab(s) orally every 6 hours, As Needed Post Procedure Discharge Criteria Criteria: Easily arousable / responding appropriately; Significant complications are absent; SpO2 = or > 92%, or if SpO2 < 92%, maintains within 2% of baseline; Vital signs +/- 20% of preprocedure status; Ambulates without dizziness / age appropriate activity and ambulatory status returns to pre-procedure baseline. Post Procedure Discharge Criteria PEDS Criteria: Easily arousable / Responding appropriately; Significant complications are absent; Pulse Ox equal or greater than 95% or +/- 2% of baseline; Vital Signs +/- 20% of preprocedure status; Ambulates without dizziness / Age appropriate activity Pyridium 200 mg oral tablet 1 tab(s) orally every 8 hours, As Needed All Active Home Medications at time of Discharge Reconciliation: 29-Jun-2020 09:17 Bactrim DS 800 mg-160 mg oral tablet 160 milligram(s) orally 2 times a day Call Physician For: inability to urinate every 8-12 hours and your bladder becomes too full or painful. Call Physician For: signs and sypmtoms of infection Increased redness or swelling at incision site, increased pain/tenderness at surgical site, increased temperature greater than 100 degress, increasing and/or progressive drainage from surgical site, and/or unusual odor from surgical site. Diet Regular Discharge Discharge Diagnosis< N20.1 Right ureteral stone Discharge Provider, Fatoumata Baldwin Discharge Disposition : .Home Condition at Discharge: Satisfactory Discharge Communication Instructions for Nursing Only: Remove IV prior to discharge from hospital. Do not remove any midline, if present, without an order from the provider. Discharge Instructions - PHR After your discharge from the hospital, two Summary of Care Documents will be available online in your Personal Health Record (PHR). 1.Consolidated-Clinical Document Architecture (C-CDA) Patient Discharge Summary This document is a summary of your hospital stay to be kept for your reference.2.C-CDA Visit Summary This document is a summary of your hospital stay to be shared with your follow-up providers (doctor, yeast pumper, physical therapist, etc.). Follow Up with nicolasa in 1-2 Weeks [place] 5 mg-325 mg oral tablet 1 tab(s) orally every 6 hours, As Needed oxycodone-acetaminophen 5 mg-300 mg oral tablet 1 tab(s) orally every 6 hours, As Needed Post Procedure Discharge Criteria Criteria: Easily arousable / responding appropriately; Significant complications are absent; SpO2 = or > 92%, or if SpO2 < 92%, maintains within 2% of baseline; Vital signs +/- 20% of preprocedure status; Ambulates without dizziness / age appropriate activity and ambulatory status returns to pre-procedure baseline. Post Procedure Discharge Criteria PEDS Criteria: Easily arousable / Responding appropriately; Significant complications are absent; Pulse Ox equal or greater than 95% or +/- 2% of baseline; Vital Signs +/- 20% of preprocedure status; Ambulates without dizziness / Age appropriate activity Pyridium 200 mg oral tablet 1 tab(s) orally every 8 hours, As Needed Normal [facility] Patient Profile - Preop v2on 06-29-2020 Patient Profile - Preop v2 Profile: Initial Info: How to be AddressedZach Spoken Language PreferredEnglish Are you currently using the Personal Electronic Health Record or [place] InternationalBL[facility] Are you interested in learning more about [facility] for the management of your healthdeclined Stated Reason for AdmissionKeon Hernandez Primary Contact Name and [phone] 1 Patient Belongingsremains with patient Patient Belongings Remaining with Patientclothing; jewelry Medications Brought to Hospitalno General Health: Weight in kg131.2 kilogram(s) Weight in nqy970.2 pound(s) Weight Methodactual (measured) Scale Typestanding Height in cm181 centimeter(s) Height Methodstated BMI (kg/m2)40.047 square meter Patient or Family Member Reaction to Anesthesiano previous reaction Health Mgmt: Symptoms/Conditions Managed at [facility] Barriers to Managing Healthnone Relationship/Environ: Resource/Environmental Concernsnone Substance: Current or Former Substance Use never: Cigarette/Tobacco, e-Cigarette/Vaping, Street Drugs YES: Alcohol Alcohol Use Statuscurrent alcohol Alcohol Frequencymonthly or less Risk Screens: COVID-19 Screening Completedno exposure or symptoms Advance Directive/DNRno Advance Directive Information Givenpatient/family declined During the past month, have you often been bothered by feeling down, depressed or hopelessno During the past month, have you often had little interest or pleasure in doing thingsno Have you had any thoughts of harming yourselfno Have you had any thoughts of harming anyone elseno Are you or have you been threatened or abused physically,emotionally or sexually abused by anyoneno Do you feel UNSAFE going back to the place you are livingno Patient is Able to be Assessed for Learningyes Factors Influencing Readiness to Learnmotivation to learn Factors that Impact Ability to Learnnone Devices/Methods Used to Communicatenone Learning Preferenceswritten material; verbal instruction Cultural Considerationsnone Developmental Considerationsnone Mandaeism Considerationsnone Other learner availableyes... Learnerspouse Factors Influencing Readiness to Learnmotivation to learn Factors that Impact Ability to Learnnone Devices/Methods Used to Communicatenone Learning Preferencesverbal instruction, written material Cultural Considerationsnone Developmental Considerationsnone Mandaeism Considerationsnone Falls RiskPatient location auto qualifies him/her for HIGH RISK. Are there any cultural, spiritual, mosque practices/values/needs that are important for us to knowno Pain Scalenumerical 0-10 Pain Scale Educationteaching provided Current Pain Level3 = Mild Acceptable Pain Level3 = Mild Chronic Painno Information Review: Allergies, Home Meds and Significant Events have been Reviewed and Verified with Patient/Familyyes Allergy, Intolerance, Adverse Event: Allergies: No Known Allergies: Active Electronic Signatures: Adrienne Sandhu (NOEMI) (Signed 29-Jun-2020 08:51) Authored: Initial Info, General Health, Health Mgmt, Relationship/Environ, Substance, Risk Screens, Additional Information Last Updated: 29-Jun-2020 08:51 by Adrienne Sandhu (NOEMI) [facility] Preop Checkliston 06-29-2020 Preop Checklist Preop Checklist: Preop Checklist: Arrival [id number] Arrival Time08:25 Procedure Typecysto R Temperature C36.4 degrees C Temperature F97.6 degrees F Heart Rate59 beats per minute Respiratory Rate16 breath per minute Blood Pressure Lidzgosu361 mm/Hg Blood Pressure Quqcuuisn48 mm/Hg NPO [id number] 23:59 ID Band Onyes Allergy Bandno known allergies Consent Signedyes H&P Completeyes Anesthesia Assessment Completedyes EKG Performednot ordered Chest X-Ray Performednot ordered HCG Urine TestN/A Chlorhexadine Bath Givennot applicable Nasal Antiseptic Appliednot applicable Hair Washednot applicable Soap and water bath with hair shampoo the night before surgerynot applicable Hat placed on prior to transportnot applicable SCD's Appliednot applicable MEET Hose Appliednot ordered Denturesnot applicable Prostheticsnot applicable Hearing Aidsnot applicable Valuables Securedleft in patient room Glasses / Contactsnot applicable Bowel Prepno Cardiovascular Assessment: Apicalregular Radial Pulsespalpable Pedal Pulsespalpable Extremitieswarm Respiratory Assessment: Respirationsunlabored Air Exchangeequal Breath Soundsclear Neurological Assessment: Level of Consciousnessalert Mobilitymoves all extremities Able to Express Selfyes Age Appropriateyes Emotional Statuscalm Skin Assessment: Skin Site(s) with Current Compromisenone Preop Education: Surgical Site Infection Preventionyes Pain Scales and Managementyes Language / Communication: Language / CommunicationEnglish Electronic Signatures: Adrienne Sandhu (RN) (Signed 29-Jun-2020 09:02) Authored: Preop Checklist Last Updated: 29-Jun-2020 09:02 by Adrienne Sandhu (NOEMI) Normal [facility] CORONAVIRUS 2019 BY PCRon CORONAVIRUS 2019,PCR NOT DETECTED Normal Not Detected [facility] Comment on above: Result Comment: . This assay is designed to detect SARS-CoV-2 based on replication of specific regions of the RNA from the SARS-CoV-2 virus. A Not Detected result does not preclude 2019-nCoV infection since the adequacy of sample collection and/or low viral burden may result in presence of viral nucleic acids below the clinical sensitivity of this test method. Fact sheet for providers: https://www.fda.gov/media/372304/download Fact sheet for patients: https://www.fda.gov/media/147319/download This test has received FDA Emergency Use Authorization [EUA] and has been verified by [facility] ([facility]). This test is only authorized for the duration of time that circumstances exist to justify the authorization of the emergency use of in vitro diagnostic tests for the detection of SARS-CoV-2 virus and/or diagnosis of COVID-19 infection under section 564(b)(1) of the Act, 21 U.S.C. 360bbb-3(b)(1), unless the authorization is terminated or revoked sooner. [facility] is certified under CLIA-88 as qualified to perform high complexity testing. Testing is performed in the [facility] laboratories located at [id number] [place] [address]. Performed By: #### C OV19 ####[id number] [facility] [place] [address] ABDOMEN AP VIEWon 06-27-2020 ABDOMEN AP VIEW Patient Name: REBECCA MENDEZ STUDY: ABDOMEN AP VIEW; ; 06/27/2020 9:25 am INDICATION: Right flank pain. COMPARISON: 08/13/2016 ACCESSION NUMBER(S): [id number] ORDERING CLINICIAN: FATOUMATA BALDWIN FINDINGS: Supine AP views of the abdomen. There is a nonobstructive bowel gas pattern. Pneumoperitoneum is not well assessed on a supine exam. Suspected 7 mm calculus overlies the expected location of the interpolar region of the right kidney. Possible calculus overlying the expected location of the upper pole of the left kidney measures 5 mm. No other suspicious abdominal calcification.. No acute bony abnormality. Mild bilateral hip arthritic changes, symmetric appearance, mildly worsened since the previous exam. Sacroiliac joints are within normal limits. IMPRESSION: Suspected bilateral nephrolithiasis, as discussed above. Electronically signed by: ANTIONETTE AMEZQUITA MD Normal [facility] CORONAVIRUS 2019 BY PCRon Lab Specimen Source Nasal, Nasopharyngeal Normal [facility] Comment on above: Performed By: #### C OV19 ####[id number] [place] [address] Discharge Summaryon 05-06-19 18 Discharge Summary Normal [facility] ([place]) .GFRon 04-21-2017 eGFR (non-black) mL/min/{1.73_m2} Normal [facility] ([place]) Comment on above: Result Comment: GFR Population mean for , Non- Americans Ages 20-29 = 116 mL/min/1.73 sq.m. Ages 30-39 = 107 mL/min/1.73 sq.m. Ages 40-49 = 99 mL/min/1.73 sq.m. Ages 50-59 = 93 mL/min/1.73 sq.m. Ages 60-69 = 85 mL/min/1.73 sq.m. Ages 70+ = 75 mL/min/1.73 sq.m.Chronic Kidney Disease: Less than 60 mL/min/1.73 square metersEnd Stage Renal Disease: Less than 15 mL/min/1.73 square meters Performed By: #### B MP, GFR ####[address] [address] BMPon 04-21-2017 BUN/Creatinine Ratio 17.6 ratio Normal 10.0-22.0 [facility] ([place]) Comment on above: Performed By: #### B MP, GFR ####[place] [address] Calcium 9.6 mg/dL Normal 8.4-10.1 [facility] ([place]) Comment on above: Performed By: #### B MP, GFR ####[place] [address] Chloride 103 mmol/L Normal 98-110 [facility] ([place]) Comment on above: Performed By: #### B MP, GFR ####[place] [address] CO2 28 mmol/L Normal 22-32 [facility] ([place]) Comment on above: Performed By: #### B MP, GFR ####[place] [address] Creatinine 0.85 mg/dL Normal 0.60-1.40 [facility] ([place]) Comment on above: Performed By: #### B MP, GFR ####[place] [address] Electrolyte Balance 8.0 mEq/L Normal 4.0-15.0 [facility] ([place]) Comment on above: Performed By: #### B MP, GFR ####[place] [address] Glucose mass conc 95 mg/dL Normal 70-110 [facility] ([place]) Comment on above: Performed By: #### B MP, GFR ####[place] [address] Potassium molar conc 4.8 mmol/L Normal 3.5-5.0 [facility] ([place]) Comment on above: Performed By: #### B MP, GFR ####[place] [address] Sodium 139 mmol/L Normal 136-145 [facility] ([place]) Comment on above: Performed By: #### B MP, GFR ####[place] [address] Urea nitrogen 15.0 mg/dL Normal 8.0-22.0 [facility] ([place]) Comment on above: Performed By: #### B MP, GFR ####[place] [id number] [place] [address] Depart Summaryon 04-21-2017 Depart Summary Normal [facility] ([place]) Main OR Intraop Recordon Main OR Intraop Record Normal [facility] ([place]) Operative Noteon 04-21-2017 Operative Note Normal [facility] ([place]) Outpatient Patient Summaryon 04-21-2017 Outpatient Patient Summary Normal [facility] ([place]) XR FLUORO 1-2 HRS TECH TIMEo n 04-21-2017 INR Coag RelTime (Bld) ORIGINALXR FLUORO 1-2 HRS TECH TIME CLINICAL STATEMENT: pain right clavicle dislocation Fluoro Dose Information: 4 seconds, 2 images. FINDINGS: Intraoperative images of the clavicle demonstrate improvement of acromioclavicular alignment. Interpreted By: Tyler Linda MDPreliminary Report By: Tyler Linda MDElectronically Signed By: Tyler Linda MD Dictated Date: 04/21/2017 2:16:52 PM Prelim Date: 04/21/2017 2:16:52 PM Sign Date: 04/21/2017 2:17:47 PM Normal [facility] ([place]) MRI SHOULDER W/O CONTRAST RI Ton 04-17-2017 MRI SHOULDER W/O CONTRAST RIGHT ORIGINALMRI SHOULDER W/O CONTRAST RIGHT CLINICAL STATEMENT: right shoulder pain. COMPARISON: Radiographs, 04/12/2017 FINDINGS: An intermediate injury is seen of the coracoclavicular ligament complex. There is irregularity and associated edema. The coracoclavicular distance is widened measuring at least 16 mm.. There is edema and irregularity associated with the acromioclavicular joint ligamentous structures. There is slight elevation of the acromion. There is significant edema in the soft tissues around the trapezius muscle. Mild edema noted within portions of the anterior deltoid. The supraspinatus and infraspinatus tendons are intact. The teres minor tendon is normal Subscapularis demonstrates a low-grade intrasubstance tear. The long head biceps tendon is intact. The glenohumeral ligament complexes appear normal. The glenohumeral cartilage is not optimally evaluated. Edema extends along the deltotrapezial fascia. IMPRESSION: 1. Intermediate grade acromioclavicular and coracoclavicular ligamentous injury consistent with an acromioclavicular separation. There is also edema/strain involving the trapezius and deltoid muscles and edema extending along the deltotrapezial fascia2. Low-grade subscapularis tendon tear Interpreted By: Everette Blakelyreliminary Report By: Everette Blakely MDElectronically Signed By: Everette Blakely MD Dictated Date: 04/13/2017 2:39:10 PM Prelim Date: 04/13/2017 2:44:31 PM Sign Date: 04/17/2017 11:39:31 AM Normal [facility] ([place]) Discharge Summaryon 04-14-19 18 Discharge Summary Normal [facility]) Surgical Progress Noteon Surgical Progress Note Normal [facility]) .GFRon 04-13-2017 eGFR (non-black) mL/min/{1.73_m2} Normal [facility]) Comment on above: Result Comment: GFR Population mean for , Non- Americans Ages 20-29 = 116 mL/min/1.73 sq.m. Ages 30-39 = 107 mL/min/1.73 sq.m. Ages 40-49 = 99 mL/min/1.73 sq.m. Ages 50-59 = 93 mL/min/1.73 sq.m. Ages 60-69 = 85 mL/min/1.73 sq.m. Ages 70+ = 75 mL/min/1.73 sq.m.Chronic Kidney Disease: Less than 60 mL/min/1.73 square metersEnd Stage Renal Disease: Less than 15 mL/min/1.73 square meters Performed By: #### B MP, GFR, CBC, DIFF, MORPH ####[address] [address] .Manual Diffon 04-13-2017 Basophil %, Manual 1.0 % Normal 0.0-2.5 [facility] ([place]) Comment on above: Performed By: #### B MP, GFR, CBC, DIFF, MORPH ####[address] [address] Basophil, Abs Manual 0.13 10 3/mcL Normal 0.00-0.27 [facility] ([place]) Comment on above: Performed By: #### B MP, GFR, CBC, DIFF, MORPH ####[place] [address] Cells Counted 100 Normal [facility] ([place]) Comment on above: Performed By: #### B MP, GFR, CBC, DIFF, MORPH ####[address] [address] Eosinophil, Abs Manual 0.00 10 3/mcL Normal 0.00-0.65 [facility] ([place]) Comment on above: Performed By: #### B MP, GFR, CBC, DIFF, MORPH ####[place] [address] Lymphocyte %, Manual 27.0 % Normal 20.0-40.0 [facility] ([place]) Comment on above: Performed By: #### B MP, GFR, CBC, DIFF, MORPH ####[place] [address] Lymphocyte, Abs Manual 3.43 10 3/mcL Normal 0.90-4.32 [facility] ([place]) Comment on above: Performed By: #### B MP, GFR, CBC, DIFF, MORPH ####[place] [address] Monocyte %, Manual 6.0 % Normal 2.0-13.0 [facility] ([place]) Comment on above: Result Comment: 0.0 Performed By: #### B MP, GFR, CBC, DIFF, MORPH ####[address] [address] Monocyte, Abs Manual 0.76 10 3/mcL Normal 0.09-1.40 A [facility] ([place]) Comment on above: Performed By: #### B MP, GFR, CBC, DIFF, MORPH ####[place] [address] Neutrophil %, Manual 66.0 % Normal 50.0-75.0 [facility] ([place]) Comment on above: Performed By: #### B MP, GFR, CBC, DIFF, MORPH ####[address] [address] Neutrophil, Abs Manual 8.38 10 3/mcL High 2.25-8.10 [facility] ([place]) Comment on above: Performed By: #### B MP, GFR, CBC, DIFF, MORPH ####[place] [address] .Morphon 04-13-2017 Erythrocyte morphology Normal Normal [facility] ([place]) Comment on above: Performed By: #### B MP, GFR, CBC, DIFF, MORPH ####[place] [address] Platelets Normal Normal [facility] ([place]) Comment on above: Performed By: #### B MP, GFR, CBC, DIFF, MORPH ####[place] [address] BMPon 04-13-2017 BUN/Creatinine Ratio 17.9 ratio Normal 10.0-22.0 [facility] ([place]) Comment on above: Performed By: #### B MP, GFR, CBC, DIFF, MORPH ####[place] [address] Creatinine 0.78 mg/dL Normal 0.60-1.40 [facility] ([place]) Comment on above: Performed By: #### B MP, GFR, CBC, DIFF, MORPH ####[place] [address] Calcium 8.8 mg/dL Normal 8.4-10.1 [facility] ([place]) Comment on above: Performed By: #### B MP, GFR, CBC, DIFF, MORPH ####[place] [address] CO2 21 mmol/L Low 22-32 [facility] ([place]) Comment on above: Performed By: #### B MP, GFR, CBC, DIFF, MORPH ####[place] [address] Electrolyte Balance 10.0 mEq/L Normal 4.0-15.0 [facility] ([place]) Comment on above: Performed By: #### B MP, GFR, CBC, DIFF, MORPH ####[place] [address] Glucose mass conc 123 mg/dL High 70-110 [facility] ([place]) Comment on above: Performed By: #### B MP, GFR, CBC, DIFF, MORPH ####[place] [address] Potassium molar conc 5.9 mmol/L High 3.5-5.0 [facility] ([place]) Comment on above: Result Comment: Spec imen slightly hemolyzed Performed By: #### B MP, GFR, CBC, DIFF, MORPH ####[place] [address] Urea nitrogen 14.0 mg/dL Normal 8.0-22.0 [facility] ([place]) Comment on above: Performed By: #### B MP, GFR, CBC, DIFF, MORPH ####[place] [address] Chloride 106 mmol/L Normal 98-110 [facility] ([place]) Comment on above: Performed By: #### B MP, GFR, CBC, DIFF, MORPH ####[place] [address] Sodium 137 mmol/L Normal 136-145 [facility] ([place]) Comment on above: Performed By: #### B MP, GFR, CBC, DIFF, MORPH ####[place] [address] CBCon 04-13-2017 Platelet mean volume (PMV) 7.9 fL Normal 6.4-10.5 [facility] [facility] ([place]) Comment on above: Performed By: #### B MP, GFR, CBC, DIFF, MORPH ####[place] [address] Platelets 234 10 3/mcL Normal 150-450 [facility]ly [facility] ([place]) Comment on above: Performed By: #### B MP, GFR, CBC, DIFF, MORPH ####[address] [address] WBC (Leukocytes) 12.70 10 3/mcL High 4.50-10.80 [facility] ([place]) Comment on above: Performed By: #### B MP, GFR, CBC, DIFF, MORPH ####[place] [address] Erythrocyte distribution width Auto Ratio (RBC) 13.6 % Normal 11.5-15.5 [facility] ([place]) Comment on above: Performed By: #### B MP, GFR, CBC, DIFF, MORPH ####[place] [address] Erythrocytes (RBC) 5.41 10 6/mcL Normal 4.50-6.00 Formerly [facility] ([place]) Comment on above: Performed By: #### B MP, GFR, CBC, DIFF, MORPH ####[place] [address] Hematocrit (HCT) 47.6 % Normal 40.0-52.0 [facility] ([place]) Comment on above: Performed By: #### B MP, GFR, CBC, DIFF, MORPH ####[place] [address] Hemoglobin mass conc (Bld) 17.2 G/dL Normal 13.0-17.5 [facility] ([place]) Comment on above: Performed By: #### B MP, GFR, CBC, DIFF, MORPH ####[place] [address] MCH 31.7 pg Normal 27.0-33.0 [facility] ([place]) Comment on above: Performed By: #### B MP, GFR, CBC, DIFF, MORPH ####[place] [address] MCHC mass conc (RBC) 36.1 G/dL High 32.0-36.0 [facility] ([place] Comment on above: Performed By: #### B MP, GFR, CBC, DIFF, MORPH ####[place] [address] MCV 87.9 fL Normal 81.0-100.0 [facility] ([place]) Comment on above: Performed By: #### B MP, GFR, CBC, DIFF, MORPH ####[place] [address] Depart Summaryon 04-13-2017 Depart Summary Normal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
== END | disposition home or self-care (01) ==
LOC: SL 19:55
PROVIDERS: PCP Nurse Practitioner Family; Referring Provider Nurse Practitioner Family; Visit Provider Nurse Practitioner Family
DX: G47.10 Hypersomnia, unspecified (principal)
CPT/HCPCS: 95810

== ENCOUNTER → 2024-03-04 | Outpatient (CLI) | payer BC, SELFPAY | END | disposition home or self-care (01) | LOC: SL 08:32 | PROVIDERS: PCP Nurse Practitioner Family; Visit Provider Nurse Practitioner Family | DX: Z00.00 Encounter for general adult medical examination without abnormal findings (principal) ==

== ENCOUNTER → 2024-07-08 | Outpatient (CLI) | payer BC, SELFPAY ==
[2024-07-08 15:26] LABS: Absolute Lymphocyte Count 2.74 X10^3/uL (0.83-4.51); Absolute Neutrophil Count 2.9 X10^3/uL (2.0-7.7); Basophil# 0.05 X10^3/uL; Basophil% 0.8 % (0-1); Eosinophil# 0.25 X10^3/uL; Eosinophils% 3.9 % (0-5); Hematocrit 48.9 % (40-54); Hemoglobin 17.5 g/dL (13.0-16.5); Lymphocyte # 2.74 X10^3/ul (0.83-4.51); Lymphocyte % 42.2 % (19-41); Mean Corp Hgb Conc 35.8 g/dL (32-36); Mean Corpuscular Hgb 31.1 pg (27.0-32.0); Mean Platelet Vol. 9.1 fl (6.2-12.0); Monocyte# 0.53 X10^3/uL; Monocyte% 8.2 % (0-10); NRBC Flagged by Analyzer 0 % (0-5); Neutrophil # 2.91 X10^3/uL (2.7-7.7); Neutrophil % 44.7 % (47-70); Platelet Count 244 K/mm3 (150-450); RBC Distribution Width CV 12.8 % (11.6-14.6); RBC Distribution Width SD 39.8 fl (35.1-43.9); Red Blood Count 5.62 M/mm3 (4.6-6.2); White Blood Count 6.5 K/mm3 (4.4-11.0)
[2024-07-08 19:34] LABS: Cholesterol 164 mg/dL (<=200); High Density Lipoprotein 37 mg/dL; Low Density Lipoprotein Calc. 106 mg/dL; Triglycerides 106 mg/dL; Very Low Density Lipoprotein 21 mg/dL (5-40); cholesterol:hdl ratio screen 4.47
[2024-07-08 20:27] LABS: Iron 118 ug/dL (65-175)
[2024-07-08 21:06] LABS: ALB/GLOB Ratio 1.7 RATIO (0.9-2.4); AST(SGOT) 38 U/L (<=37); Alanine Aminotransfer ALT/SGPT 66 U/L (<=46); Albumin, Serum 4.5 g/dL (3.5-5.0); Alkaline Phosphatase 49 U/L (40-129); Anion Gap 13 (5-15); BUN 12 mg/dL (4-19); BUN/Creat Ratio 13.8 RATIO (10-20); Calcium,Total 9.3 mg/dL (7.6-11.0); Carbon Dioxide 23.3 mmol/L (21.0-32.0); Chloride 102 mmol/L (98-108); Creatinine, Serum 0.84 mg/dL (0.70-1.20); EST Glomerular Filtration Rate 110 (>60); Globulin 2.6 g/dL (2.2-4.2); Glucose 125 mg/dL (70-99); PSA,Total - Annual Screen 1.44 ng/mL (0.02-4.00); Potassium 3.6 mmol/L (3.3-5.1); Pro- Brain NATRIURETIC PEPTIDE < 36 pg/mL (<=450); Sodium Level 139 mmol/L (133-145); Total Bilirubin 0.91 mg/dL (0.00-1.30); Vitamin B12 819 pg/mL (180-914); Vitamin D,25 Hydroxy 22.9 ng/mL (30-100)
[2024-07-13 10:23] LABS: Hemoglobin A1c 5.2 % (<=5.6)
== END | disposition home or self-care (01) ==
PROVIDERS: PCP Nurse Practitioner Family; Visit Provider Nurse Practitioner Family
DX: Z00.01 Encounter for general adult medical examination with abnormal findings (principal); R73.01 Impaired fasting glucose; R53.83 Other fatigue; D58.2 Other hemoglobinopathies; Z12.5 Encounter for screening for malignant neoplasm of prostate
CPT/HCPCS: 36415; 80053; 80061; 81270; 82306; 82607; 83036; 83540; 83880; 84153; 84443; 85025; G0103

== ENCOUNTER → 2024-08-03 | Outpatient (CLI) | payer BC, SELFPAY ==
--- NOTE | 2024-08-03 12:20 | ECHOD_ITS ---
Reason For Study Reason For Study: DYSPNEA Procedure This was a 2D Doppler, Color Flow transthoracic echocardiogram. Exam performed in department. Left Ventricle Normal LV size. Left ventricular systolic function is normal. The left ventricular ejection fraction is 60 %. No regional wall motion abnormalities noted. Right Ventricle Normal RV size. Normal systolic function. Atria Normal left atrium. Normal right atrium. Mitral Valve Normal mitral valve. Tricuspid Valve Normal tricuspid valve. Mild tricuspid valve insufficiency. Pulmonary artery systolic pressure is 32 mmHg. Aortic Valve Trisinus/trileaflet aortic valve. Pulmonic Valve Normal pulmonic valve. Great Vessels Normal aortic root. The pulmonary artery is normal size. Inferior vena cava collapse with respiration. Pericardium/Pleural No pericardial effusion. MMode/2D Measurements & Calculations LVIDd: 4.9 cm IVSd: 1.0 cm Ao root diam: 3.1 cm LVIDs: 3.5 cm LVPWd: 1.1 cm RVDd: 3.8 cm FS: 28.7 % LAV(MOD-bp): 44.7 ml LVAd ap4: 37.6 cm2 LVAd ap2: 31.7 cm2 LAV(MOD-bp) Indexed: 17.7 ml/m2 LVLd ap4: 8.9 cm LVLd ap2: 8.8 cm LAV(MOD-sp2): 41.5 ml EDV(MOD-sp4): 132.2 ml EDV(MOD-sp2): 97.6 ml LAV(MOD-sp4): 44.8 ml EDV(sp4-el): 135.3 ml EDV(sp2-el): 96.5 ml LVAs ap4: 21.9 cm2 LVAs ap2: 18.5 cm2 LVLs ap4: 7.4 cm LVLs ap2: 7.0 cm ESV(MOD-sp4): 57.6 ml ESV(MOD-sp2): 43.5 ml ESV(sp4-el): 55.3 ml ESV(sp2-el): 41.3 ml EF(MOD-sp4): 56.4 % EF(MOD-sp2): 55.5 % EF(sp4-el): 59.1 % SV(MOD-sp4): 74.6 ml SV(MOD-sp2): 54.1 ml SV(sp4-el): 80.0 ml SI(MOD-sp4): 29.6 ml/m2 SI(MOD-sp2): 21.5 ml/m2 LA A4 area: 18.1 cm2 LA dimension(2D): 3.4 cm RA A4 area: 17.1 cm2 TAPSE: 1.7 cm Time Measurements MV dec time: 0.20 sec Doppler Measurements & Calculations MV E max jovanni: 87.2 cm/sec Lat Peak E' Jovanni: 16.6 cm/sec Med Peak E' Jovanni: 8.8 cm/sec MV A max jovanni: 68.4 cm/sec E/E' lat: 5.3 E/E' med: 9.9 MV E/A: 1.3 Ao V2 max: 155.7 cm/sec LV V1 max: 119.5 cm/sec PA V2 max: 140.8 cm/sec Ao max P.7 mmHg LV V1 max P.7 mmHg TR max jovanni: 269.4 cm/sec TR max P.0 mmHg ECHO/Echo Complete Interpretation Summary Normal LV size. Left ventricular systolic function is normal. The left ventricular ejection fraction is 60 %. Structurally normal valves. Ordering Physician: Gloria Coppola Referring Physician: Gloria Coppola Performed By: Emily Restrepo RDCS
--- NOTE | 2024-08-03 16:56 | STRESSREP ---
Stress Test Report Exercise stress test. 44-year-old male with a history of chest pain Stress protocol: Resting EKG demonstrates normal sinus rhythm with a rate of 61 bpm resting blood pressure is 146/92 mmHg. The patient exercised according to the regular Daniel protocol for a total duration of 12-1/2 minutes attaining a maximum heart rate of 157 bpm which was 89% of maximum predicted heart rate; the maximum workload was 15.1 metabolic equivalents. At rest there were no ST or T wave changes noted to suggest ischemia and at peak exercise upsloping ST changes only were noted which did not meet the criteria for ischemia. No clinical angina was noted the test was terminated due to the target heart rate being achieved/fatigue. The peak blood pressure was 194/90 mmHg. Rate-pressure product was 27,900 Conclusion: Stress test with no evidence of ischemia at a high workload. No arrhythmias noted..
== END | disposition home or self-care (01) ==
LOC: CVS 12:18
PROVIDERS: PCP Nurse Practitioner Family; Referring Provider Nurse Practitioner Family; Visit Provider Nurse Practitioner Family
DX: R06.09 Other forms of dyspnea (principal); G47.19 Other hypersomnia
CPT/HCPCS: 93017; 93306

== ENCOUNTER → 2024-08-12 | Outpatient (CLI) | payer BC, SELFPAY ==
[2024-08-12 14:20] LABS: Internal QC Validated? YES +Cl - CLEAR BKGD; Monotest Negative (Negative); Record Kit Lot#, Mono 13241430
== END | disposition home or self-care (01) ==
LOC: MTLAB 10:33
PROVIDERS: PCP Nurse Practitioner Family; Referring Provider Nurse Practitioner Family; Visit Provider Nurse Practitioner Family
DX: R53.83 Other fatigue (principal)
CPT/HCPCS: 36415; 80074; 84402; 84403; 86308

== ENCOUNTER → 2024-12-22 | Outpatient (CLI) | payer BC, SELFPAY ==
--- NOTE | 2024-12-22 08:41 | RAD_ITS ---
PROCEDURE: ANKLE MIN 3 VIEWS 12/22/2024 REASON FOR EXAM: R/O FX TECHNIQUE: Procedure Code: RADANK Modality: DX Procedure: ANKLE MIN 3 VIEWS Laterality: Left COMPARISON: None FINDINGS: Bones: No fracture Joints: Normal alignment. Mortise appears intact. No effusion. Soft tissues: Mild soft tissue swelling laterally RAD/Ankle min 3 Views IMPRESSION: Soft tissue swelling. Reading Location: [id number]
== END | disposition home or self-care (01) ==
LOC: RAD 08:38
PROVIDERS: PCP Nurse Practitioner Family; Referring Provider Nurse Practitioner Family; Visit Provider Nurse Practitioner Family
DX: M25.572 Pain in left ankle and joints of left foot (principal)
CPT/HCPCS: 73610

== ENCOUNTER → 2025-03-17 | Outpatient (CLI) | payer BC, SELFPAY ==
[2025-03-17 12:29] LABS: Hematocrit 50.9 % (40-54); Immature Granulocytes Count 0.020 X10^3/uL (0.0-0.0); Mean Corp Hgb Conc 35.6 g/dL (32-36); Mean Corpuscular Volume 87.6 fL (80-94); Mean Platelet Vol. 9.3 fl (6.2-12.0); NRBC Flagged by Analyzer 0 % (0-5); Platelet Count 265 K/mm3 (150-450); RBC Distribution Width CV 13.2 % (11.6-14.6); RBC Distribution Width SD 42.3 fl (35.1-43.9); Red Blood Count 5.81 M/mm3 (4.6-6.2); White Blood Count 7.3 K/mm3 (4.4-11.0)
[2025-03-17 13:03] LABS: Hemoglobin 18.1 g/dL (13.0-16.5)
[2025-03-17 13:20] LABS: AST(SGOT) 29 U/L (<=37); Alanine Aminotransfer ALT/SGPT 51 U/L (<=46); Albumin, Serum 4.6 g/dL (3.5-5.0); Alkaline Phosphatase 49 U/L (40-129); Bilirubin, Direct 0.36 mg/dL (0.00-0.30); Globulin 2.9 g/dL (2.2-4.2); Vitamin D,25 Hydroxy 33.4 ng/mL (30-100)
[2025-03-22 12:08] LABS: Testosterone, % Free 2.41 % (1.50-4.20); Testosterone, Free 8.00 ng/dL (5.00-21.00)
== END | disposition home or self-care (01) ==
LOC: BFHLAB 10:41
PROVIDERS: PCP Nurse Practitioner Family; Visit Provider Nurse Practitioner Family
DX: I10 Essential (primary) hypertension (principal); E29.1 Testicular hypofunction
CPT/HCPCS: 36415; 80076; 82306; 84402; 84403; 85025